=== PATIENT | male | born 1965 | race Caucasian/White ===

== ENCOUNTER 2024-11-16 10:15 | Emergency (ER) | payer BC ==
[~2024-11-16] VITALS: Ht 175.3 cm; Wt 128.8 kg
[~2024-11-16 10:15] MED LIST: NO REPORTABLE MEDS
[2024-11-16 11:03] LABS: PLATELET COUNT (AUTO) 256 K/uL (150-450); RED BLOOD CELL COUNT(AUTO) 5.63 MIL/uL (4.5-6.0); RED CELL DISTRIBUTION WIDTH 13.0 % (11.5-15.0); WHITE BLOOD COUNT (AUTO) 7.2 K/uL (4.3-11.0)
[2024-11-16 11:18] LABS: CALCIUM, SERUM 9.6 mg/dL (8.5-10.1); CREATININE 1.2 mg/dL (0.6-1.3); SODIUM SERUM 140 mmol/L (136-145); UREA NITROGEN, BLOOD 16 mg/dL (7-18)
[2024-11-16 11:21] LABS: AMPHETAMINE, URINE NEGATIVE (NEGATIVE); BARBITURATE, URINE NEGATIVE (NEGATIVE); BENZODIAZEPINE, URINE NEGATIVE (NEGATIVE); CANNABINOID, URINE NEGATIVE (NEGATIVE); COCCAINE, URINE NEGATIVE (NEGATIVE); OPIATE, URINE NEGATIVE (NEGATIVE)
[2024-11-16 11:29] LABS: NT-PRO BNP 6 pg/mL (0-125)
[2024-11-16 13:06] VITALS: BP 138/78; TEMP 97.9; O2SAT 97
== END 2024-11-16 13:07 | disposition home or self-care (01) ==
LOC: ER 10:17
DX: R07.89 Other chest pain (principal); R06.02 Shortness of breath; E11.65 Type 2 diabetes mellitus with hyperglycemia; Z79.899 Other long term (current) drug therapy
CPT/HCPCS: 36415; 71045-TC; 80048-TC; 82962-TC; 83735-TC; 83880; 84439-TC; 84443-TC; 84484-TC; 85025-TC